=== PATIENT | male | born 1995 | race Caucasian/White ===

== ENCOUNTER → 2019-02-11 | Outpatient (CLI) | payer OTHER ==
[2019-02-12 07:12] LABS: HIV-1/HIV-2 ANTIBODY Non Reactive (Non Reactive)
== END ==
LOC: M.LAB 16:07
PROVIDERS: Family Medicine
DX: Z20.2 Contact with and (suspected) exposure to infections with a predominantly sexual mode of transmission (principal)

== ENCOUNTER → 2019-07-06 | Outpatient (CLI) | payer OTHER | LOC: M.ULTRA 13:00 | DX: N43.2 Other hydrocele (principal); I86.1 Scrotal varices; N43.40 Spermatocele of epididymis, unspecified ==

== ENCOUNTER → 2020-06-08 | Outpatient (CLI) | payer OTHER ==
[2020-06-08 10:54] LABS: ABSOLUTE EOSINOPHILS 0.1 thou/uL (0.0-0.7); ABSOLUTE LYMPHOCYTES 1.8 thou/uL (0.8-5.3); ABSOLUTE MONOCYTES 0.4 thou/uL (0.0-1.2); ABSOLUTE NEUTROPHILS 3.5 thou/uL (1.6-8.1); BASOPHILS 0.8 %; EOSINOPHILS 1.4 %; HEMOGLOBIN 14.6 gm/dL (14.0-18.0); LYMPHOCYTES 30.4 %; MCH 31.2 pg (26.0-34.0); MCV 91.8 fL (80.0-100.0); MONOCYTES 7.4 %; MPV 6.6 fl. (7.2-11.1); NUCLEATED RBCS 0 /100WBC; PLATELET COUNT* 254 thou/uL (150-400); RBC 4.68 mil/uL (4.50-6.00); RDW-CV 12.9 % (10.5-14.5); WBC 5.8 thou/uL (4.0-11.0)
[2020-06-08 11:07] LABS: ALBUMIN 4.3 g/dL (3.4-5.0); CALCIUM 9.3 mg/dL (8.5-10.1); CREATININE 0.9 mg/dL (0.6-1.3); POTASSIUM 3.9 mmol/L (3.5-5.1); TOTAL BILIRUBIN 0.5 mg/dL (<0.1-1.0); TOTAL PROTEIN 7.8 g/dL (6.4-8.2)
[2020-06-08 22:07] LABS: TESTOSTERONE 744 ng/dL (264-916)
[2020-06-08 23:06] LABS: HIV-1/HIV-2 ANTIBODY Non Reactive (Non Reactive)
== END ==
LOC: M.LAB 10:38
PROVIDERS: ATTEND Family Medicine
DX: Z20.2 Contact with and (suspected) exposure to infections with a predominantly sexual mode of transmission (principal); R68.82 Decreased libido; R53.82 Chronic fatigue, unspecified; R36.9 Urethral discharge, unspecified